=== PATIENT | male | born 1945 | race Caucasian/White ===

== ENCOUNTER → 2017-11-08 09:33 | Outpatient (POV) | payer MEDICARE, SELFPAY | PROVIDERS: Family Provider Family Medicine; Visit Provider Internal Medicine | DX: Z00.00 Encounter for general adult medical examination without abnormal findings (principal) ==

== ENCOUNTER → 2018-05-09 11:35 | Outpatient (POV) | payer MEDICARE, SELFPAY | PROVIDERS: Family Provider Family Medicine; Visit Provider Internal Medicine | DX: Z00.00 Encounter for general adult medical examination without abnormal findings (principal) ==

== ENCOUNTER → 2018-05-18 12:36 | Outpatient (CLI) | payer MEDICARE, SELFPAY ==
--- NOTE | 2018-05-18 12:40 | CT_ITS ---
CT lung screening EXAM: CT LUNG LOW DOSE WO CONTRAST HISTORY: 50+ pack year smoking history, asymptomatic lung cancer ITS.REASON: TOBACCO USE ORDERING PHYSICIAN: Lyndon Casarez MD PATIENT AGE: 72 years COMPARISON: 03/23/17 TECHNIQUE: The exam was performed on a GE Light Speed [address] scanner using 2.90 mGy CTDI. A low dose helical CT CHEST was performed on a multi-detector scanner. All CT scans at the facility use one or more dose reduction, viz: automated exposure control, ma/kV adjustment per patient size (including targeted exams where dose is matched to indication, i.e. head), or iterative reconstruction technique. The LDCT was performed in a facility that meets the criteria for the screening program. Data regarding this exam was submitted to [employer] which is an approved registry. The order for this exam indicates that it came as a result of a lung cancer screening counseling shard decision-making visit that included all the elements required of such a visit including smoking cessation. The radiologist interpreting this exam meets the CMS criteria for the LDCT lung cancer screening program. The exam is reported using the Lung-RADS classification scale and reported to the ACR registry. NOTE: This study was performed for the specific purposes of lung cancer screening and is not an alternative to diagnostic chest CT. RADIATION DOSE: CTDI vol(CT dose Index-volume) = 2.90mG DLP (Dose Length Product) = 125.07 mGcm FINDINGS: Centrilobular emphysema with scattered areas of scarring along with bronchial thickening and chronic collapse of the right middle lobe. There is increased density in the right infrahilar region within the medial aspect of the right lung base centrally suggesting increasing volume loss.. Increasing atelectatic changes are present in the right lung base. No change subpleural 4 mm nodule within the lingula. There are fibrotic changes in the left lung base. Incidental coronary artery calcifications are present IMPRESSION: 1. Lung RADS Category: 4, suspicious. There is increased density in the right infrahilar region. While this may be related to postinflammatory changes with increasing volume loss, one cannot exclude an endobronchial or peribronchial lesion at this area. Bronchoscopy may be of further value. If that is not performed then, would at least recommend performing a diagnostic chest CT with contrast in 3 months 2. Other findings: Emphysema, obstructive chronic bronchitis, coronary artery calcifications RECOMMENDATIONS: Consider bronchoscopy for right infrahilar density or at least a [address] with contrast
== END ==
PROVIDERS: Family Provider Family Medicine; PCP Family Medicine; Visit Provider Internal Medicine
DX: Z12.2 Encounter for screening for malignant neoplasm of respiratory organs (principal); Z87.891 Personal history of nicotine dependence; Z71.6 Tobacco abuse counseling; J43.9 Emphysema, unspecified

== ENCOUNTER → 2018-08-28 08:29 | Outpatient (CLI) | payer MEDICARE, SELFPAY ==
--- NOTE | 2018-08-28 08:34 | CT_ITS ---
CT chest wo con HISTORY: Follow-up abnormal screening CAD, 50 pack years smoking history, emphysema ITS.REASON: ABNORMAL LUNG IMAGING ORDERING PHYSICIAN: Lyndon Casarez MD PATIENT AGE: 72 years COMPARISON: 05/18/2018 Technique: Axial images obtained with sagittal and coronal reformats. All CT scans at the facility use one or more dose reduction, viz: automated exposure control, ma/kV adjustment per patient size (including targeted exams where dose is matched to indication, i.e. head), or iterative reconstruction technique. FINDINGS: No mediastinal or hilar mass or adenopathy. There is persistent right middle lobe collapse with air bronchograms within the collapsed lung. There is bronchial thickening centrally. Volume loss also noted in the right lower lobe centrally and medially with scarring and atelectasis in the right lung base. There are fibrotic changes in the lung apices. Fibrotic changes are present lingula and left upper lobe. Overall no significant change compared to the previous CT. Hyperinflation with attenuation of peripheral pulmonary vessels consistent COPD along with centrilobular emphysema. Coronary artery calcification present IMPRESSION: Overall no significant change in the right middle lobe collapse and volume loss in the right lung base medially with emphysema, COPD, atelectatic changes and scattered areas of scarring.
== END ==
PROVIDERS: PCP Family Medicine; Visit Provider Internal Medicine
DX: R91.8 Other nonspecific abnormal finding of lung field (principal)
CPT/HCPCS: 71250

== ENCOUNTER → 2018-10-17 10:11 | Outpatient (POV) | payer MEDICARE, SELFPAY | PROVIDERS: Visit Provider Dermatology | DX: Z00.00 Encounter for general adult medical examination without abnormal findings (principal) ==

== ENCOUNTER → 2018-11-21 13:12 | Outpatient (POV) | payer MEDICARE, SELFPAY ==
[2018-11-21 15:38] LABS: Basophils # 0.1 K/mm3 (0-0.2); Basophils % 0.8 % (0.1-2.0); Eosinophils # 0.2 K/mm3 (0.0-0.4); Eosinophils % 4.2 % (0.1-12.0); Hemoglobin 14.3 g/dL (14.1-18.0); Lymphocytes # 1.8 K/mm3 (0.7-4.5); Lymphocytes % 30.9 % (10-50); Mean Corpuscular HGB Conc 33.3 g/dL (31.8-35.4); Mean Corpuscular Hemoglobin 29.9 pg (27.0-31.2); Mean Corpuscular Volume 89.8 fl (80-94); Mean Platelet Volume 7.3 fl (7.4-10.4); Monocytes # 0.4 K/mm3 (0.1-1.0); Monocytes % 6.5 % (1.7-9.3); Neutrophils # 3.3 K/mm3 (1.8-7.8); Neutrophils % 57.7 % (37.0-80.0); Platelet Count 321 K/mm3 (142-424); Red Blood Count 4.79 M/mm3 (4.60-6.20); Red Cell Distribution Width 13.1 % (11.5-17.5); White Blood Count 5.8 K/mm3 (4.8-10.8)
[2018-11-21 17:11] LABS: Alanine Aminotransferase 21 U/L (12-78); Albumin Level 3.7 gm/dL (3.4-5.0); Alkaline Phosphatase 138 U/L (46-116); Anion Gap 14.7 mEq/L (5-15); Aspartate Amino Transferase 20 U/L (15-37); Bilirubin,Total 0.6 mg/dL (0.2-1.0); Blood Urea Nitrogen 13 mg/dL (7-18); Calcium 9.5 mg/dL (8.5-10.1); Carbon Dioxide 28 mmol/L (21.0-32.0); Chloride 104 mmol/L (98-107); Creatinine,Serum 0.84 mg/dL (0.70-1.30); Estimated Glomerular Filt Rate 90 ml/min (>60); GFR (African American) 109 ML/MIN (>60); Globulin 3.7 gm/dl (1.3-3.2); Glucose 86 mg/dL (74-106); Potassium 4.7 mmoL/L (3.5-5.1); Sodium 142 mmol/L (136-145); Thyroid Stimulating Hormone 1.89 uIU/ml (0.358-3.740); Total Protein,Serum 7.4 gm/dL (6.4-8.2)
== END ==
PROVIDERS: Nurse Practitioner Family; Visit Provider Internal Medicine
DX: R32 Unspecified urinary incontinence (principal); R63.4 Abnormal weight loss; J43.9 Emphysema, unspecified; R42 Dizziness and giddiness
CPT/HCPCS: 36415; 80053; 84443; 85025

== ENCOUNTER → 2018-11-28 12:10 | Outpatient (CLI) | payer MEDICARE, SELFPAY ==
[2018-11-28 13:44] LABS: Microscopic, Urine URINE MICROSCOPIC (MICROSCOPIC)
[2018-11-28 14:08] LABS: Appearance,Urine CLEAR (Clear); Bilirubin,Urine Negative (Negative); Blood, Urine TRACE-L (Negative); Color,Urine YELLOW (Yellow); Glucose,Urine (UA) Negative (Negative); Ketones,Urine Negative (Negative); Leukocyte Esterase,Urine Negative (Negative); Nitrate,Urine Negative (Negative); PH,Urine 6.5 (5.0-8.5); Protein,Urine Negative (Negative); Specific Gravity, Urine <= 1.005 (1.005-1.030); Urobilinogen,Urine 0.2 EU/dl (0.2)
[2018-11-28 14:16] LABS: Bacteria,Urine Trace /lpf; RBC,Urine Occasional #/hpf (0-3); Squamous Epithelial Cell,Urine Occasional #/hpf (0-5)
== END ==
PROVIDERS: Visit Provider Nurse Practitioner Family
DX: R42 Dizziness and giddiness (principal); R32 Unspecified urinary incontinence; R63.4 Abnormal weight loss; J34.9 Unspecified disorder of nose and nasal sinuses
CPT/HCPCS: 81001

== ENCOUNTER → 2018-12-21 10:42 | Outpatient (CLI) | payer MEDICARE, SELFPAY ==
[2018-12-22 10:12] LABS: PSA, Free 0.71 ng/mL; Prostate Specific Ag 7.9 ng/mL (0.0-4.0)
== END ==
PROVIDERS: Visit Provider Urology
DX: Z12.5 Encounter for screening for malignant neoplasm of prostate (principal); R97.20 Elevated prostate specific antigen [PSA]
CPT/HCPCS: 36415; 84153; 84154

== ENCOUNTER → 2019-02-06 09:47 | Outpatient (POV) | payer MEDICARE, SELFPAY | PROVIDERS: Visit Provider Internal Medicine | DX: Z00.00 Encounter for general adult medical examination without abnormal findings (principal) ==

== ENCOUNTER → 2019-06-12 15:09 | Outpatient (POV) | payer MEDICARE, SELFPAY | PROVIDERS: Visit Provider Internal Medicine | DX: Z00.00 Encounter for general adult medical examination without abnormal findings (principal) ==

== ENCOUNTER → 2019-06-12 15:38 | Outpatient (CLI) | payer MEDICARE, SELFPAY ==
--- NOTE | 2019-06-12 15:43 | XR_ITS ---
PROCEDURE: XR CHEST 2V CLINICAL HISTORY: COPD COPD, smoker COMPARISON: CXR CHEST(2 VIEWS-NOT PORTABLE) from 10/03/2013 CXR CHEST(2 VIEWS-NOT PORTABLE) from 06/10/[address] chest wo con from 08/28/2018 FINDINGS: The cardiomediastinal silhouette and pulmonary vascularity are within normal limits. Hyperinflation with attenuation of the peripheral pulmonary vessels consistent with COPD with eventration of the hemidiaphragms. There are chronic changes in the lung bases and in the right middle lobe or lingula. There is patchy density in the left lung base which could be related to superimposed infiltrate. No acute bony abnormalities. IMPRESSION: COPD with patchy infiltrate in the left lung base Dictated by: Bart Zendejas MD 06/12/2019 16:27 Electronically signed by Bart Zendejas MD in [place] 06/12/2019 16:27
== END ==
PROVIDERS: PCP Family Medicine; Visit Provider Internal Medicine
DX: J44.1 Chronic obstructive pulmonary disease with (acute) exacerbation (principal)
CPT/HCPCS: 71046

== ENCOUNTER → 2019-09-25 12:05 | Outpatient (CLI) | payer MEDICARE, SELFPAY ==
[2019-09-25 16:19] LABS: Prostate Specific Ag, Diagnost 3.19 ng/mL (0.0-4.0)
== END ==
PROVIDERS: Visit Provider Urology
DX: R97.20 Elevated prostate specific antigen [PSA] (principal)
CPT/HCPCS: 36415; 84153